=== PATIENT | female | born 1980 | race Two or more races ===

== ENCOUNTER → 2019-07-27 11:35 | Outpatient (CLI) | payer OTHER, SELFPAY ==
--- NOTE | ~2019-07-27 | XR_ITS ---
EXAMINATION: XR chest 2V DATE: 07/27/2019 11:49 INDICATION: Personal history of nicotine dependence. TECHNIQUE: Frontal and lateral views of the chest were obtained. COMPARISON: None. FINDINGS: There is mild scarring at the lung apices. No pleural effusion or pneumothorax. The heart s ize is normal. IMPRESSION: 1. Mild scarring at the lung apices. Reviewed, dictated and finalized at location B. [employer]
== END ==
PROVIDERS: PCP Family Medicine; Visit Provider Family Medicine
DX: Z87.891 Personal history of nicotine dependence (principal); R91.8 Other nonspecific abnormal finding of lung field
CPT/HCPCS: 71046

== ENCOUNTER 2019-12-26 12:28 | Emergency (ER) | payer OTHER, SELFPAY ==
[2019-12-26 12:37] VITALS: BP 101/61; PULSE 67; RESP 18; TEMP 37.1; O2SAT 100
--- NOTE | 2019-12-26 12:50 | ED.GENADULT ---
HPI - General Adult General Chief complaint: Ear Stated complaint: ear pain/pressure Time Seen by Provider: 12/26/19 12:45 Source: patient Mode of arrival: ambulatory Limitations: no limitations History of Present Illness HPI narrative: Terri Lainez is a 39 yo femaile with a PMH of depression, Mich's thyroiditis, who comes to the [facility] care with left ear pain that started this morning. She has a headache now, pain with chewing or opening mouth, headache is dull on left side, has taken some ibuprofen for the headache Related Data Allergies Allergy/AdvReac Type Severity Reaction Status Date / Time No Known Allergies Allergy Verified 12/26/19 12:41 Review of Systems Review of Systems: Narrative: CONSTITUTIONAL: Denies fever, chills, sweats. Headache EYES: Denies visual changes, redness, discharge. ENT: Denies rhinorrhea, congestion, sore throat, L otalgia. CARDIOVASCULAR: Denies chest pain, palpitations, edema. RESPIRATORY: Denies dyspnea, wheezing, cough GASTROINTESTINAL: Denies abdominal pain, nausea, vomiting, diarrhea. GENITOURINARY: Denies dysuria, hematuria, abnormal discharge SKIN: Denies rash or itching. NEUROLOGIC: Denies numbness, or focal weakness. PSYCHIATRIC: Denies anxiety or depression. PMFSH Past Medical History Medical History Family history of osteoporosis Miscarriage Thyroid disorder Surgical History Surgical History History of delivery Family History Family History Mother Hypothyroid Father Hypertension Grandparent Hypertension Cerebrovascular accident Grandparent Breast cancer Sibling Arthritis Fibromyalgia Anxiety Social History Social History Smoking status: Never smoker Alcohol intake: current Drinks per week: 1 Substance use: never Comments At time of signature, I agree with nursing past medical, surgical, social and family history. There is no relevant family history pertinent to the presenting complaint. Exam Narrative: Exam Narrative: GENERAL: This is a well-nourished, well-developed patient, in mild distress. HEAD: normocephalic, atraumatic. EYES: Sclera clear/white. Vision is grossly intact. EARS: External ears normal, auditory canals clear on right ; appears red and tender, TMs normal without perforation. Hearing grossly intact. NOSE: External nose normal without nasal discharge, nares without redness, mild rhinorrhea. THROAT: Mucous membranes moist, posterior pharynx within normal limits NECK: Neck supple, non-tender CARDIOVASCULAR: Regular rate and rhythm without murmurs, gallops, or rubs. RESPIRATORY: Clear to auscultation. Breath sounds equal bilaterally. No wheezes, rales, or rhonchi. GASTROINTESTINAL: Abdomen soft, non-tender, SKIN: warm, intact with no suspicious lesions or rash, good texture and turgor. NEURO: awake, alert, and oriented to person, place and time. There were no obvious focal neurologic abnormalities. Steady gait EXTREMITIES: Normal range of motion. BACK: Nontender without deformity Course Course Emergency Course: Started on Cortisporin eardrops Claritin, Naprosyn Vital Signs Vital signs: Vital Signs Temperature 98.7 F 12/26/19 12:37 Pulse Rate 67 12/26/19 12:37 Respiratory Rate 18 12/26/19 12:37 Blood Pressure 101/61 12/26/19 12:37 Pulse Oximetry 100 12/26/19 12:37 Temperature 98.7 F 12/26/19 12:37 Pulse Rate 67 12/26/19 12:37 Respiratory Rate 18 12/26/19 12:37 Blood Pressure 101/61 12/26/19 12:37 Pulse Oximetry 100 12/26/19 12:37 Medical Decision Making Differential Diagnosis Differential Diagnosis: Otitis media, otitis externa, seasonal allergies Vital Signs Vital Signs: Vital Signs Temperature 98.7 F 12/26/19 12:37
--- NOTE | 2019-12-26 13:00 | ED.EAR ---
HPI - Ear Problem General Chief complaint: Ear Stated complaint: ear pain/pressure Time Seen by Provider: 12/26/19 12:45 Source: patient Mode of arrival: ambulatory Limitations: no limitations History of Present Illness HPI Narrative: Terri Lainez is a 39 yo female with Mich's thyroiditis, anxiety, here with left ear pain that started this morning; no pain with opening mouth but has a dull headache presently. She has taken ibuprofen. Related Data Allergies Allergy/AdvReac Type Severity Reaction Status Date / Time No Known Allergies Allergy Verified 12/26/19 12:41 Review of Systems Review of Systems: Narrative: CONSTITUTIONAL: Denies fever, chills, sweats. Headache EYES: Denies visual changes, redness, discharge. ENT: Denies rhinorrhea, congestion, sore throat, L otalgia. CARDIOVASCULAR: Denies chest pain, palpitations, edema. RESPIRATORY: Denies dyspnea, wheezing, cough GASTROINTESTINAL: Denies abdominal pain, nausea, vomiting, diarrhea. GENITOURINARY: Denies dysuria, hematuria, abnormal discharge SKIN: Denies rash or itching. NEUROLOGIC: Denies numbness, or focal weakness. PSYCHIATRIC: Denies anxiety or depression. [facility] Past Medical History Medical History Family history of osteoporosis Miscarriage Thyroid disorder Surgical History Surgical History History of delivery Family History Family History Mother Hypothyroid Father Hypertension Grandparent Hypertension Cerebrovascular accident Grandparent Breast cancer Sibling Arthritis Fibromyalgia Anxiety Social History Social History Smoking status: Never smoker Alcohol intake: current Drinks per week: 1 Substance use: never Comments At time of signature, I agree with nursing past medical, surgical, social and family history. There is no relevant family history pertinent to the presenting complaint. Exam Narrative: Exam Narrative: GENERAL: This is a well-nourished, well-developed patient, in mild distress. HEAD: normocephalic, atraumatic. EYES: PERRL. Sclera clear/white. Vision is grossly intact. EARS: External ears normal, auditory canals clear on right , left erythema and tenderness, TMs normal without perforation. Hearing grossly intact. NOSE: External nose normal without nasal discharge, nares without redness, mild rhinorrhea. THROAT: Mucous membranes moist, posterior pharynx NECK: Neck supple, non-tender CARDIOVASCULAR: Regular rate and rhythm without murmurs, gallops, or rubs. RESPIRATORY: Clear to auscultation. Breath sounds equal bilaterally. No wheezes, rales, or rhonchi. GASTROINTESTINAL: Abdomen soft, non-tender, SKIN: warm, intact with no suspicious lesions or rash, good texture and turgor. NEURO: awake, alert, and oriented to person, place and time. There were no obvious focal neurologic abnormalities. Steady gait EXTREMITIES: Normal range of motion. BACK: Nontender without deformity Course Course Emergency Course: Started on polymyxin eardrops, Claritin, Naprosyn Vital Signs Vital signs: Vital Signs Temperature 98.7 F 12/26/19 12:37 Pulse Rate 67 12/26/19 12:37 Respiratory Rate 18 12/26/19 12:37 Blood Pressure 101/61 12/26/19 12:37 Pulse Oximetry 100 12/26/19 12:37 Temperature 98.7 F 12/26/19 12:37 Pulse Rate 67 12/26/19 12:37 Respiratory Rate 18 12/26/19 12:37 Blood Pressure 101/61 12/26/19 12:37 Pulse Oximetry 100 12/26/19 12:37 Medical Decision Making Differential Diagnosis Differential Diagnosis: Otitis media versus externa, viral infection Vital Signs Vital Signs: Vital Signs Temperature 98.7 F 12/26/19 12:37 Pulse Rate 67 12/26/19 12:37 Respiratory Rate 18 12/26/19 12:37 Blood Pressure 101/61 05
== END 2019-12-26 13:05 | disposition home or self-care (01) ==
PROVIDERS: Emergency Provider Nurse Practitioner; PCP Family Medicine
DX: H66.002 Acute suppurative otitis media without spontaneous rupture of ear drum, left ear (principal); E06.3 Autoimmune thyroiditis; F41.9 Anxiety disorder, unspecified
CPT/HCPCS: 99213; G0463

== ENCOUNTER 2020-05-23 08:46 | Emergency (ER) | payer OTHER, SELFPAY ==
[2020-05-23 08:54] VITALS: BP 99/63; PULSE 66; RESP 14; TEMP 36.6; O2SAT 98
--- NOTE | 2020-05-23 09:13 | ED.EAR ---
HPI - Ear Problem General Chief complaint: Ear Stated complaint: left ear pain/pressure Time Seen by Provider: 05/23/20 09:03 Source: patient and RN notes reviewed Mode of arrival: ambulatory Limitations: no limitations History of Present Illness HPI Narrative: Patient presents today complaining of pain and clogging to the left ear x3 days. She attempted to remove wax from her left ear by flushing with water, but did not have any wax resulting. Currently rates the pain 7/10 and had tried Tylenol without much relief. Denies any drainage from the ear. Denies any sick symptoms to include cough, congestion, rhinorrhea, sore throat. MD Complaint: ear pain and decreased hearing Related Data Allergies Allergy/AdvReac Type Severity Reaction Status Date / Time No Known Allergies Allergy Verified 05/23/20 09:07 Review of Systems Review of Systems: Narrative: CONSTITUTIONAL: Denies body aches, fever, chills, or sweats. EYES: Denies visual changes, redness, or discharge. ENT: Denies rhinorrhea, congestion, sore throat. + Left ear pain and decreased hearing CARDIOVASCULAR: Denies chest pain, palpitations, or edema. RESPIRATORY: Denies cough or dyspnea. GASTROINTESTINAL: Denies abdominal pain, nausea, vomiting, or diarrhea. GENITOURINARY: Denies dysuria or hematuria. SKIN: Denies rash, itching, or wounds. MUSCULOSKELETAL: Denies back pain, joint pain, or myalgia. NEUROLOGIC: Denies headache, numbness, tingling, or weakness. PSYCH: Denies depression or anxiety. [facility] Past Medical History Medical History (Updated 05/23/20 @ 10:31 by Laurel Mcgee, [facility], ) Family history of osteoporosis Miscarriage Thyroid disorder Surgical History Surgical History History of delivery Family History Family History Mother Hypothyroid Father Hypertension Grandparent Hypertension Cerebrovascular accident Grandparent Breast cancer Sibling Arthritis Fibromyalgia Anxiety Social History Social History Smoking status: Never smoker Alcohol intake: current Drinks per week: 1 Substance use: never Comments At time of signature, I have reviewed and agree with nursing past medical, surgical, social and family history unless otherwise noted. Please see nursing chart for further information. There is no relevant family history pertinent to the presenting complaint Exam Narrative: Exam Narrative: GENERAL: Well-appearing, well-nourished, and in mild pain distress. HEAD: Normocephalic, atraumatic. EYES: EOMI. No redness or drainage. Conjunctivae normal. ENT: Mucous membranes pink and moist. Nares clear. No rhinorrhea. Bilateral cerumen impactions, left greater than right. Movement and tragal tenderness on the left. NECK: Normal AROM. Supple. No lymphadenopathy. CHEST: No respiratory distress. EXTREMITIES: Normal range of motion. No edema. SKIN: Warm, dry, no rash. Capillary refill normal. Normal skin turgor. NEURO: No focal deficits. Alert and oriented x3. Gait steady. PSYCH: Normal affect. No signs of depression or anxiety. Course Vital Signs Vital signs: Vital Signs Temperature 97.8 F 05/23/20 08:54 Pulse Rate 66 05/23/20 08:54 Respiratory Rate 14 05/23/20 08:54 Blood Pressure 99/63 L 05/23/20 08:54 Pulse Oximetry 98 05/23/20 08:54 Temperature 97.8 F 05/23/20 08:54 Pulse Rate 66 05/23/20 08:54 Respiratory Rate 14 05/23/20 08:54 Blood Pressure 99/63 L 05/23/20 08:54 Pulse Oximetry 98 05/23/20 08:54 Reviewed Procedures Ear Wax Removal Both Ears: Ear Wax Removal Date: 05/23/20 Ear Wax Removal Time: 09:16 Cerumenolytic Used: other (Hydrogen peroxide) Results: Re-examined: some cerumen remains TM Examination: TM(s) intact, normal appearance
[2020-05-23] MEDS: IBUPROFEN 400 MG TABLET 800 MG PO (10:34)
== END 2020-05-23 10:49 | disposition home or self-care (01) ==
PROVIDERS: Emergency Provider Nurse Practitioner; PCP Family Medicine
DX: H61.23 Impacted cerumen, bilateral (principal)
CPT/HCPCS: 69209; 99212; A9270; G0463

== ENCOUNTER 2021-03-20 09:42 | Outpatient (CLI) | payer OTHER, SELFPAY ==
--- NOTE | ~2021-03-20 | XR_ITS ---
EXAMINATION: XR foot LT min 3V DATE: 03/20/2021 09:54 INDICATION: Medial left foot pain TECHNIQUE: Dorsoplantar, two oblique and lateral views of the left foot were obtained. COMPARISON: None. FINDINGS: Alignment is normal. No fracture. 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 Soft tissue swelling about the dorsal medial aspect of the midfoot overlying the medial cuneiform. No underlying cortical erosion or periosteal reaction. IMPRESSION: 1. Nonspecific soft tissue tissue swelling at the left midfoot overlying the dorsal medial aspect of the medial cuneiform with no underlying osseous abnormality. Reviewed, dictated and finalized at location B. IMPRESSION: 1. Nonspecific soft tissue tissue swelling at the left midfoot overlying the do rsal medial aspect of the medial cuneiform with no underlying osseous abnormali ty.
== END 2021-03-20 09:43 | disposition home or self-care (01) ==
LOC: ANHBWCLAB 09:43
PROVIDERS: PCP Family Medicine; Visit Provider Family Medicine
DX: M79.673 Pain in unspecified foot (principal); M79.89 Other specified soft tissue disorders
CPT/HCPCS: 73630

== ENCOUNTER 2021-08-22 09:27 | Outpatient (CLI) | payer OTHER, SELFPAY ==
[2021-08-22 20:43] LABS: T4 Thyroxine 6.53 ug/dL (5.53-11.0)
[2021-08-22 20:57] LABS: Total Triiodothyronine (T3) 1.55 NG/ML (0.97-1.69)
[2021-08-25 03:51] LABS: Triiodothryronine T3 Uptake 32 % (22-35)
[2021-08-25 05:39] LABS: Triiodothyronine T3 Free 3.4 pg/mL (2.3-4.2)
[2021-08-26 09:19] LABS: T3 Reverse 9 ng/dL (8-25)
== END 2021-08-22 09:28 | disposition home or self-care (01) ==
PROVIDERS: PCP Family Medicine; Visit Provider Family Medicine
DX: E03.8 Other specified hypothyroidism (principal); E03.9 Hypothyroidism, unspecified; E06.3 Autoimmune thyroiditis
CPT/HCPCS: 36415; 84436; 84443; 84479; 84480; 84481; 84482

== ENCOUNTER 2022-09-16 11:09 | Emergency (ER) | payer OTHER, SELFPAY ==
[2022-09-16 11:24] VITALS: BP 110/75; PULSE 80; RESP 20; TEMP 36.9; O2SAT 99
--- NOTE | 2022-09-16 12:32 | ED.GENADULT ---
HPI - General Adult General Chief complaint: Skin/Abscess/Foreign Body Stated complaint: cold sores Source: patient Mode of arrival: ambulatory Limitations: no limitations History of Present Illness HPI narrative: Patient presents for evaluation of cold sores. She indicates she has a history of these and was previously given Valtrex. She does not have any medication at this time. She reports some painful sores to her lower lip for the last few days. She recently had gum surgery. No additional complaints or concerns. Related Data Home Medications Medication Instructions Recorded Confirmed levothyroxine 75 mcg tablet 75 mcg PO DAILY 09/16/22 09/16/22 liothyronine 5 mcg tablet 5 mcg PO DAILY 09/16/22 09/16/22 Allergies Allergy/AdvReac Type Severity Reaction Status Date / Time No Known Allergies Allergy Verified 09/16/22 11:37 Review of Systems Review of Systems: CONSTITUTIONAL: Denies fever, chills, or sweats. EYES: Denies visual changes, redness, or discharge. ENT: Reports painful lesions to the lower lip. Denies rhinorrhea, congestion, sore throat, or otalgia. CARDIOVASCULAR: Denies chest pain, palpitations, or edema. RESPIRATORY: Denies cough or dyspnea. GASTROINTESTINAL: Denies abdominal pain, nausea, vomiting, or diarrhea. GENITOURINARY: Denies dysuria or hematuria. SKIN: Denies rash or itching. MUSCULOSKELETAL: Denies back pain, joint pain, or myalgia. NEUROLOGIC: Denies headache, numbness, dizziness, or weakness. PSYCHIATRIC: Denies anxiety or depression. [facility] Past Medical History Medical History (Updated 09/16/22 @ 12:32 by MINAL Simpson, ) Family history of osteoporosis Herpes simplex Miscarriage Thyroid disorder Surgical History Surgical History History of delivery Family History Family History Mother Hypothyroid Father Hypertension Grandparent Hypertension Cerebrovascular accident Grandparent Breast cancer Sibling Arthritis Fibromyalgia Anxiety Social History Social History Smoking packs per day: 0.5 Smoking cigarettes per day: 10.0 Years smoked: 15 Smoking pack-years: 7.50 Smoking status: Former smoker Alcohol intake: current Drinks per week: 1 Substance use: never Lack of Transportation: No Lack of Food: Never True Current Housing: I Have Housing Concerned About Future Housing: No Difficulty Paying Gas/Electric Bills: No Difficulty Paying for Meds: No Currently Unemployed: No Education: Associate Degree Difficulty w/ Childcare or Family Care: No Exam Narrative: GENERAL: Well-appearing, well-nourished, and in no acute distress. HEAD: Normocephalic, atraumatic. EYES: PERRLA and EOMI. ENT: Nares clear, no rhinorrhea or epistaxis. Mucous membranes moist. There is some vesicular lesions to the lower lip. bilateral TMs pearly ritchie nonbulging NECK: Supple. No adenopathy or masses. No carotid bruits or JVD CHEST: Clear to auscultation. No respiratory distress. No wheezes rales or rhonchi HEART: Regular rate and rhythm. No murmur heard. Normal peripheral pulses. ABDOMEN: Soft, nontender, nondistended, normal active bowel sounds. EXTREMITIES: Normal range of motion. No edema. SKIN: Warm, dry, no rash. NEURO: No focal deficits. Alert and oriented x3. PSYCH: Normal mood and affect. Course Course Emergency Course: This is a 41-year-old female with a history of HSV presented for evaluation and treatment of cold sores. Will provide her with a script for Valtrex. Follow up with primary provider. Go to the ER for worsening symptoms. Patient in agreement with plan of care Level of Care: Express Care Visit Vital Signs Vital signs: Vital Signs Temperature 36.9 C 09/16/22 11:24 Pulse Rate 80 09/16/22 11
== END 2022-09-16 12:36 | disposition home or self-care (01) ==
PROVIDERS: Emergency Provider Nurse Practitioner; PCP Family Medicine
DX: B00.1 Herpesviral vesicular dermatitis (principal); Z87.891 Personal history of nicotine dependence; E07.9 Disorder of thyroid, unspecified
CPT/HCPCS: 99213; G0463